=== PATIENT | male | born 1980 | race Caucasian/White ===

== ENCOUNTER 2020-11-09 10:45 | Emergency (ER) | payer BC ==
[~2020-11-09] VITALS: Ht 182.9 cm; Wt 95.2 kg
[2020-11-09] MEDS ORDERED: IBUP600 PO (13:10)
== END 2020-11-09 13:59 | disposition home or self-care (01) ==
LOC: ER 10:45
DX: S63.502A Unspecified sprain of left wrist, initial encounter (principal); W01.10XA Fall on same level from slipping, tripping and stumbling with subsequent striking against unspecified object, initial encounter
CPT/HCPCS: 29125; 73100; 73110; 99283-25